=== PATIENT | male | born 1960 | race Hispanic/Latino ===

== ENCOUNTER 2018-05-06 18:59 | Emergency (ER) | payer MEDICARE, MEDICAID ==
[~2018-05-06] VITALS: Ht 175.3 cm; Wt 79.0 kg
[~2018-05-06 18:59] MED LIST: ABILIFY10 MG PO; ASPIRIN EC81 MG PO; BACTRIM DS1 TAB PO; CIPROFLOXACN500 MG PO; DIVALPROEX500 MG PO; ENALAPRIL10 MG PO; FLEXERIL5 MG PO; GABAPENTIN300 MG PO; GLYBURIDE2.5 M1 PO; LEXAPRO10 MG PO; LORTAB 1010 MG PO; LORTAB 7.57.5 MG PO; METFORMIN500 MG PO; METRONIDAZOL500 MG PO; NAPROXEN250 MG PO; NEURONTIN300 MG PO; NYSTATIN100000 M4 TOP; PERCOCET1 TA4 PO; PRILOSEC40 MG PO; TRAMADOL HCL50 MG PO; XANAX1 MG PO
[2018-05-06 20:41] LABS: HEMOGLOBIN 14.1 g/dl (14.0-18.0); IMMATURE GRANULOCYTES 0.2 % (0.0-5.0); MEAN CELL VOLUME 88.8 fL CALC (80.0-100.0); MEAN CORPUSCULAR HGB 29.8 pG CALC (26.0-32.0); MEAN CORPUSCULAR HGB CONC 33.6 g/L CALC (32.0-36.0); NEUT# 4.34 thou/uL (1.82-7.42); RED BLOOD COUNT 4.73 mill/uL (4.70-6.10); RED CELL DISTRI WIDTH 13.9 % (11.5-15.5)
[2018-05-06 21:34] LABS: URINE BILIRUBIN - DIPSTICK NEGATIVE (NEGATIVE); URINE BLOOD DIPSTICK NEGATIVE (NEGATIVE); URINE CLARITY CLEAR; URINE COLOR YELLOW; URINE GLUCOSE - DIPSTICK >=1000 mg/dL (NEGATIVE); URINE KETONE TRACE mg/dL (NEGATIVE); URINE LEUK ESTERASE NEGATIVE (NEGATIVE); URINE NITRITE - DIPSTICK NEGATIVE (Negative); URINE PH 5.5 (4.5-8.0); URINE PROTEIN - DIPSTICK TRACE mg/dL (NEG-TRACE); URINE SPECIFIC GRAVITY 1.025; URINE UROBILINOGEN - DIPSTICK 0.2 E.U./dL (0.2)
[2018-05-06 22:13] LABS: ALBUMIN 3.8 g/dL (3.2-5.0); ALKALINE PHOSPHATASE 92 u/l (38-126); ANION GAP 13 (6-22 (CALC)); BILIRUBIN, TOTAL 0.2 mg/dL (0.0-1.4); BUN 18 mg/dL (9-20); BUN/CREATININE RATIO 18 (12-20 (CALC)); CARBON DIOXIDE 25 mmol/l (22-30); CHLORIDE 105 mmol/l (95-108); GFR > 60 ML/MIN (>=60 (CALC)); GFR FOR AFR.AMER. > 60 ML/MIN (>=60 (CALC)); POTASSIUM 4.1 mmol/l (3.5-5.1); SGOT/AST 14 u/l (17-59); SODIUM 138 mmol/l (137-146); TOTAL PROTEIN 6.8 g/dL (6.3-8.2)
[2018-05-06 22:25] LABS: MYOGLOBIN 57 ng/mL (0 - 121)
[2018-05-06 23:25] VITALS: BP 128/78
== END 2018-05-06 23:25 | disposition home or self-care (01) ==
LOC: ED 18:59
PROVIDERS: Family Medicine
DX: R53.1 Weakness (principal); R11.0 Nausea; I10 Essential (primary) hypertension; R42 Dizziness and giddiness; H53.8 Other visual disturbances; E11.9 Type 2 diabetes mellitus without complications; Z79.84 Long term (current) use of oral hypoglycemic drugs

== ENCOUNTER 2018-07-16 10:01 | Emergency (ER) | payer MEDICARE, MEDICAID ==
[~2018-07-16] VITALS: Ht 175.3 cm; Wt 80.9 kg
[2018-07-16 10:43] VITALS: BP 116/76
== END 2018-07-16 10:48 | disposition home or self-care (01) ==
LOC: ED 10:01
DX: B37.0 Candidal stomatitis (principal); I10 Essential (primary) hypertension; E11.69 Type 2 diabetes mellitus with other specified complication; F25.9 Schizoaffective disorder, unspecified; F17.210 Nicotine dependence, cigarettes, uncomplicated

== ENCOUNTER 2018-08-18 16:53 | Emergency (ER) | payer MEDICARE, MEDICAID ==
[~2018-08-18] VITALS: Ht 175.3 cm; Wt 80.0 kg
[~2018-08-18 16:53] MED LIST changes: +ASPIRIN 8181 MG PO; -ASPIRIN EC81 MG PO; -GABAPENTIN300 MG PO; +PRILOSEC20 MG PO; -PRILOSEC40 MG PO
[2018-08-18] MEDS ORDERED: DOXEPIN HCL25 MG PO (17:21)
[2018-08-18] MEDS ORDERED: TAMSULOSIN HCL0.4 MG PO (17:21)
[2018-08-18] MEDS ORDERED: VICTOZA18 MG/3 ML SC (17:22)
[2018-08-18] MEDS ORDERED: LATANOPROST0.005 % OU (17:23)
[2018-08-18] MEDS ORDERED: VISTARIL 50MG C50 MG PO (17:24)
[2018-08-18] MEDS ORDERED: LOPID600 MG PO (17:24)
[2018-08-18] MEDS ORDERED: ARIPIPRAZOLE15 MG PO (17:25)
[2018-08-18] MEDS ORDERED: SERTRALINE HCL50 MG PO (17:25)
[2018-08-18] MEDS ORDERED: VESICARE10 MG PO (17:25)
[2018-08-18] MEDS ORDERED: ENALAPRIL MALEA10 MG PO (17:26)
[2018-08-18] MEDS ORDERED: ABILIFY MAINTE300 MG IJ (17:29)
[2018-08-18 18:10] VITALS: BP 125/87
== END 2018-08-18 18:10 | disposition left against medical advice (07) ==
LOC: ED 16:53
DX: S69.91XA Unspecified injury of right wrist, hand and finger(s), initial encounter (principal); M79.641 Pain in right hand; I10 Essential (primary) hypertension; E11.9 Type 2 diabetes mellitus without complications; E78.00 Pure hypercholesterolemia, unspecified; F25.9 Schizoaffective disorder, unspecified; M17.0 Bilateral primary osteoarthritis of knee; F17.210 Nicotine dependence, cigarettes, uncomplicated; X50.0XXA Overexertion from strenuous movement or load, initial encounter; Y93.89 Activity, other specified; Y92.009 Unspecified place in unspecified non-institutional (private) residence as the place of occurrence of the external cause; Z91.19 Patient's noncompliance with other medical treatment and regimen

== ENCOUNTER 2018-12-26 13:56 | Emergency (ER) | payer MEDICARE, MEDICAID ==
[~2018-12-26] VITALS: Ht 175.3 cm; Wt 80.0 kg
[~2018-12-26 13:56] MED LIST changes: +ABILIFY MAINTE300 MG IJ; +ARIPIPRAZOLE15 MG PO; +DOXEPIN HCL25 MG PO; +ENALAPRIL MALEA10 MG PO; +LATANOPROST0.005 % OU; +LOPID600 MG PO; +SERTRALINE HCL50 MG PO; +TAMSULOSIN HCL0.4 MG PO; +VESICARE10 MG PO; +VICTOZA18 MG/3 ML SC; +VISTARIL 50MG C50 MG PO
[2018-12-26 14:32] LABS: HEMATOCRIT 47.7 % (39.0-50.0); HEMOGLOBIN 15.6 g/dl (14.0-18.0); IMMATURE GRANULOCYTES 0.3 % (0.0-5.0); MEAN CORPUSCULAR HGB 29.4 pG CALC (26.0-32.0); MEAN CORPUSCULAR HGB CONC 32.7 g/L CALC (32.0-36.0); NEUT# 4.31 thou/uL (1.82-7.42); RED BLOOD COUNT 5.3 mill/uL (4.70-6.10); RED CELL DISTRI WIDTH 13.4 % (11.5-15.5)
[2018-12-26 14:43] LABS: ALKALINE PHOSPHATASE 111 u/l (38-126); ANION GAP 16 (6-22 (CALC)); BUN 14 mg/dL (9-20); BUN/CREATININE RATIO 15 (12-20 (CALC)); CARBON DIOXIDE 25 mmol/l (22-30); CHLORIDE 100 mmol/l (95-108); GFR > 60 ML/MIN (>=60 (CALC)); GFR FOR AFR.AMER. > 60 ML/MIN (>=60 (CALC)); POTASSIUM 4.3 mmol/l (3.5-5.1); SGOT/AST 14 u/l (17-59); SODIUM 136 mmol/l (137-146)
[2018-12-26 14:54] LABS: MYOGLOBIN 48 ng/mL (0 - 121)
[2018-12-26 14:56] LABS: ALBUMIN 4.8 g/dL (3.2-5.0); BILIRUBIN, TOTAL 0.5 mg/dL (0.0-1.4); TOTAL PROTEIN 8.3 g/dL (6.3-8.2)
[2018-12-26 15:51] LABS: URINE BILIRUBIN - DIPSTICK NEGATIVE (NEGATIVE); URINE BLOOD DIPSTICK NEGATIVE (NEGATIVE); URINE COLOR YELLOW; URINE GLUCOSE - DIPSTICK NEGATIVE (NEGATIVE); URINE KETONE NEGATIVE (NEGATIVE); URINE LEUK ESTERASE NEGATIVE (NEGATIVE); URINE NITRITE - DIPSTICK NEGATIVE (Negative); URINE PROTEIN - DIPSTICK NEGATIVE (NEG-TRACE); URINE UROBILINOGEN - DIPSTICK 0.2 E.U./dL (0.2)
[2018-12-26] MEDS ORDERED: LORTAB 1010 MG PO (16:27)
[2018-12-26 16:57] VITALS: BP 109/70
== END 2018-12-26 17:15 | disposition home or self-care (01) ==
LOC: ED 13:56
PROVIDERS: Emergency Medicine
DX: M25.561 Pain in right knee (principal); R53.1 Weakness; I10 Essential (primary) hypertension; E11.9 Type 2 diabetes mellitus without complications

== ENCOUNTER 2019-04-07 11:03 | Emergency (ER) | payer MEDICARE, MEDICAID ==
[~2019-04-07] VITALS: Ht 175.3 cm; Wt 86.0 kg
[~2019-04-07 11:03] MED LIST changes: +OMEPRAZOLE DR40 MG PO; -PRILOSEC20 MG PO
[2019-04-07] MEDS ORDERED: VALPROIC ACD250 M1 PO (11:27)
[2019-04-07] MEDS ORDERED: GABAPENTIN600 MG PO (11:28)
[2019-04-07] MEDS ORDERED: SERTRALINE HCL100 MG PO (11:29)
[2019-04-07] MEDS ORDERED: DOXAZOSIN MESYLA4 M1 PO (11:29)
[2019-04-07] MEDS ORDERED: ARIPIPRAZOLE20 MG PO (11:30)
[2019-04-07] MEDS ORDERED: GLIPIZIDE10 M2 PO (11:31)
[2019-04-07] MEDS ORDERED: METFORMIN HCL1000 MG PO (11:31)
[2019-04-07] MEDS ORDERED: LOSARTAN POTASS25 MG PO (11:32)
[2019-04-07] MEDS ORDERED: LORTAB 1010 MG PO (11:59)
[2019-04-07 12:05] VITALS: BP 116/74
== END 2019-04-07 12:05 | disposition home or self-care (01) ==
LOC: ED 11:03
DX: M17.11 Unilateral primary osteoarthritis, right knee (principal); I10 Essential (primary) hypertension; E11.9 Type 2 diabetes mellitus without complications; F17.210 Nicotine dependence, cigarettes, uncomplicated; Z96.651 Presence of right artificial knee joint; Z79.84 Long term (current) use of oral hypoglycemic drugs

== ENCOUNTER 2019-05-16 06:22 | Emergency (ER) | payer MEDICARE, MEDICAID ==
[~2019-05-16] VITALS: Ht 175.3 cm; Wt 79.4 kg
[~2019-05-16 06:22] MED LIST changes: +ARIPIPRAZOLE20 MG PO; +DOXAZOSIN MESYLA4 M1 PO; +GABAPENTIN600 MG PO; +GLIPIZIDE10 M2 PO; +LOSARTAN POTASS25 MG PO; +METFORMIN HCL1000 MG PO; +SERTRALINE HCL100 MG PO; +VALPROIC ACD250 M1 PO
[2019-05-16 07:02] LABS: HEMATOCRIT 42.6 % (39.0-50.0); HEMOGLOBIN 14.5 g/dl (14.0-18.0); IMMATURE GRANULOCYTES 0.4 % (0.0-5.0); MEAN CELL VOLUME 89.9 fL CALC (80.0-100.0); MEAN CORPUSCULAR HGB 30.6 pG CALC (26.0-32.0); NEUT# 4.87 thou/uL (1.82-7.42); RED BLOOD COUNT 4.74 mill/uL (4.70-6.10); RED CELL DISTRI WIDTH 13.5 % (11.5-15.5)
[2019-05-16 07:05] LABS: URINE BILIRUBIN - DIPSTICK NEGATIVE (NEGATIVE); URINE BLOOD DIPSTICK NEGATIVE (NEGATIVE); URINE COLOR YELLOW; URINE GLUCOSE - DIPSTICK >=1000 mg/dL (NEGATIVE); URINE KETONE NEGATIVE (NEGATIVE); URINE LEUK ESTERASE NEGATIVE (NEGATIVE); URINE NITRITE - DIPSTICK NEGATIVE (Negative); URINE PROTEIN - DIPSTICK NEGATIVE (NEG-TRACE); URINE SPECIFIC GRAVITY <=1.005; URINE UROBILINOGEN - DIPSTICK 0.2 E.U./dL (0.2)
[2019-05-16 07:14] LABS: ALBUMIN 4.2 g/dL (3.2-5.0); ALKALINE PHOSPHATASE 99 u/l (38-126); AMYLASE 68 u/l (30-110); ANION GAP 12 (6-22 (CALC)); BILIRUBIN, TOTAL 0.4 mg/dL (0.0-1.4); BUN 12 mg/dL (9-20); BUN/CREATININE RATIO 14 (12-20 (CALC)); CARBON DIOXIDE 29 mmol/l (22-30); CHLORIDE 98 mmol/l (95-108); CREATININE 0.9 mg/dL (0.7-1.3); GFR > 60 ML/MIN (>=60 (CALC)); GFR FOR AFR.AMER. > 60 ML/MIN (>=60 (CALC)); LIPASE 245 u/l (23-300); POTASSIUM 4.4 mmol/l (3.5-5.1); SGOT/AST 14 u/l (17-59); SODIUM 134 mmol/l (137-146); TOTAL PROTEIN 7.6 g/dL (6.3-8.2)
[2019-05-16] MEDS ORDERED: BACTRIM DS1 TAB PO (10:44)
[2019-05-16] MEDS ORDERED: LORTAB 1010 MG PO (10:45)
[2019-05-16 11:13] VITALS: BP 140/79
== END 2019-05-16 11:13 | disposition home or self-care (01) ==
LOC: ED 06:22
PROVIDERS: Emergency Medicine
DX: N45.1 Epididymitis (principal); I10 Essential (primary) hypertension; E11.42 Type 2 diabetes mellitus with diabetic polyneuropathy; F17.200 Nicotine dependence, unspecified, uncomplicated; Z79.84 Long term (current) use of oral hypoglycemic drugs
CPT/HCPCS: Q9967

== ENCOUNTER 2019-10-04 03:56 | Observation (INO) | payer MEDICARE, MEDICAID ==
[~2019-10-04] VITALS: Ht 175.3 cm; Wt 76.0 kg
[2019-10-04 04:27] LABS: IMMATURE GRANULOCYTES 0.1 % (0.0-5.0); MEAN CELL VOLUME 88.4 fL CALC (80.0-100.0); MEAN CORPUSCULAR HGB 27.4 pG CALC (26.0-32.0); MEAN CORPUSCULAR HGB CONC 31.1 g/dL CAL (32.0-36.0); NEUT# 5.4 thou/uL (1.82-7.42); RED BLOOD COUNT 4.3 mill/uL (4.70-6.10); RED CELL DISTRI WIDTH 14.8 % (11.5-15.5)
[2019-10-04 04:29] LABS: HEMOGLOBIN 11.8 g/dl (14.0-18.0)
[2019-10-04 04:39] LABS: ALBUMIN 3.8 g/dL (3.2-5.0); ALKALINE PHOSPHATASE 96 u/l (38-126); AMYLASE 59 u/l (30-110); ANION GAP 12 (6-22 (CALC)); BUN 11 mg/dL (9-20); BUN/CREATININE RATIO 14 (12-20 (CALC)); CARBON DIOXIDE 27 mmol/l (22-30); CHLORIDE 101 mmol/l (95-108); CREATININE 0.8 mg/dL (0.7-1.3); ETHYL ALCOHOL 0 mg/dl (0-30); GFR > 60 ML/MIN (>=60 (CALC)); GFR FOR AFR.AMER. > 60 ML/MIN (>=60 (CALC)); LIPASE 132 u/l (23-300); MAGNESIUM 1.6 mg/dL (1.6-2.3); SGOT/AST 12 u/l (17-59); SODIUM 137 mmol/l (137-146); TOTAL PROTEIN 7.2 g/dL (6.3-8.2)
[2019-10-04 04:40] LABS: ACT PARTIAL THROMBO TIME 34.5 SECONDS (20.0-32.5); INTERNATIONAL NORMALIZED RATIO 0.9 RATIO (0.7-1.3); PROTHROMBIN TIME 9.7 SECONDS (9.0-12.5)
[2019-10-04 04:44] LABS: BILIRUBIN, TOTAL 0.2 mg/dL (0.0-1.4)
[2019-10-04 05:50] LABS: URINE BILIRUBIN - DIPSTICK NEGATIVE (NEGATIVE); URINE BLOOD DIPSTICK NEGATIVE (NEGATIVE); URINE COLOR YELLOW; URINE GLUCOSE - DIPSTICK NEGATIVE (NEGATIVE); URINE KETONE NEGATIVE (NEGATIVE); URINE LEUK ESTERASE NEGATIVE (NEGATIVE); URINE NITRITE - DIPSTICK NEGATIVE (Negative); URINE PROTEIN - DIPSTICK NEGATIVE (NEG-TRACE); URINE UROBILINOGEN - DIPSTICK 0.2 E.U./dL (0.2)
[2019-10-04 06:01] LABS: BARBITURATES NEGATIVE (NEGATIVE); COCAINE NEGATIVE (NEGATIVE); METHADONE NEGATIVE (NEGATIVE); OXCYCODONE NEGATIVE (NEGATIVE); TETRAHYDROCANNABIONOL NEGATIVE (NEGATIVE); TRICYLIC ANTIDEPRESSANTS NEGATIVE (NEGATIVE)
[2019-10-04 07:05] VITALS: BP 119/78
[2019-10-04 07:42] VITALS: BP 139/78
[2019-10-04 08:04] VITALS: BP 119/69
[2019-10-04 11:46] VITALS: BP 118/73
== END 2019-10-04 12:52 | disposition home or self-care (01) ==
LOC: ED 03:56 → ED-I 05:40 → ED 05:54 → ED-I 05:55 → MS2 06:04
PROVIDERS: ADMIT Internal Medicine; ATTEND Internal Medicine
DX: R07.9 Chest pain, unspecified (principal); I10 Essential (primary) hypertension; E11.42 Type 2 diabetes mellitus with diabetic polyneuropathy; G89.4 Chronic pain syndrome; F25.9 Schizoaffective disorder, unspecified; E78.5 Hyperlipidemia, unspecified; F17.210 Nicotine dependence, cigarettes, uncomplicated; Z79.84 Long term (current) use of oral hypoglycemic drugs; M25.561 Pain in right knee; Z47.1 Aftercare following joint replacement surgery; Z96.651 Presence of right artificial knee joint
CPT/HCPCS: G0378

== ENCOUNTER 2019-10-31 13:59 | Emergency (ER) | payer MEDICARE, MEDICAID ==
[2019-10-31 14:37] VITALS: BP 133/71
== END 2019-10-31 14:23 | disposition home or self-care (01) ==
LOC: ED 13:59
DX: G89.29 Other chronic pain (principal); M25.561 Pain in right knee; I10 Essential (primary) hypertension; F17.200 Nicotine dependence, unspecified, uncomplicated; E11.42 Type 2 diabetes mellitus with diabetic polyneuropathy

== ENCOUNTER 2019-12-25 09:24 | Emergency (ER) | payer MEDICARE, MEDICAID ==
[~2019-12-25] VITALS: Ht 175.3 cm; Wt 74.5 kg
[2019-12-25 09:51] VITALS: BP 124/75
== END 2019-12-25 09:58 | disposition home or self-care (01) ==
LOC: ED 09:24
DX: M25.561 Pain in right knee (principal); M79.604 Pain in right leg; M79.89 Other specified soft tissue disorders; M17.0 Bilateral primary osteoarthritis of knee; I10 Essential (primary) hypertension; E11.42 Type 2 diabetes mellitus with diabetic polyneuropathy

== ENCOUNTER 2020-05-08 01:54 | Emergency (ER) | payer MEDICARE, MEDICAID ==
[~2020-05-08] VITALS: Ht 175.3 cm; Wt 72.7 kg
[2020-05-08] MEDS ORDERED: OXYCODONE15 MG PO (02:06)
[2020-05-08 02:25] VITALS: BP 128/63
== END 2020-05-08 02:35 | disposition home or self-care (01) ==
LOC: ED 01:54
DX: M54.5 Low back pain (principal); I10 Essential (primary) hypertension; E11.42 Type 2 diabetes mellitus with diabetic polyneuropathy; F17.200 Nicotine dependence, unspecified, uncomplicated

== ENCOUNTER 2020-11-19 12:56 | Emergency (ER) | payer MEDICARE, MEDICAID ==
[~2020-11-19 12:56] MED LIST changes: +OXYCODONE15 MG PO
[2020-11-19] MEDS ORDERED: ALPRAZOLAM0.5 MG PO (13:16)
[2020-11-19] MEDS ORDERED: GABAPENTIN300 M2 PO (13:18)
[2020-11-19] MEDS ORDERED: SOLIFENACIN SUCC5 MG PO (13:19)
[2020-11-19] MEDS ORDERED: SERTRALINE100 MG PO (13:19)
[2020-11-19] MEDS ORDERED: TAMSULOSIN HCL0.4 MG PO (13:20)
[2020-11-19] MEDS ORDERED: OXTELLAR XR150 MG PO (13:21)
[2020-11-19] MEDS ORDERED: MONTELUKAST SOD10 MG PO (13:22)
[2020-11-19] MEDS ORDERED: OMEPRAZOLE DR40 MG (13:22)
[2020-11-19] MEDS ORDERED: LOPID600 MG PO (13:23)
[2020-11-19] MEDS ORDERED: DIVALPROEX SOD250 MG PO (13:24)
[2020-11-19] MEDS ORDERED: ASPIRIN325 MG PO (13:25)
[2020-11-19] MEDS ORDERED: ABILIFY MYCITE PO (13:25)
[2020-11-19] MEDS ORDERED: JANUVIA100 MG PO (13:26)
[2020-11-19] MEDS ORDERED: DOXEPIN HCL75 MG PO (13:26)
[2020-11-19 14:13] VITALS: BP 125/80
== END 2020-11-19 14:20 | disposition home or self-care (01) ==
LOC: ED 12:56
DX: M54.5 Low back pain (principal); I10 Essential (primary) hypertension; E11.42 Type 2 diabetes mellitus with diabetic polyneuropathy; E78.5 Hyperlipidemia, unspecified; F17.200 Nicotine dependence, unspecified, uncomplicated; W11.XXXA Fall on and from ladder, initial encounter; Y93.89 Activity, other specified; Y92.009 Unspecified place in unspecified non-institutional (private) residence as the place of occurrence of the external cause; Z87.442 Personal history of urinary calculi

== ENCOUNTER 2021-01-25 06:23 | Emergency (ER) | payer MEDICARE, MEDICAID ==
[~2021-01-25] VITALS: Ht 175.3 cm; Wt 72.0 kg
[~2021-01-25 06:23] MED LIST changes: +ABILIFY MYCITE PO; +ALPRAZOLAM0.5 MG PO; +ASPIRIN325 MG PO; +DIVALPROEX SOD250 MG PO; +DOXEPIN HCL75 MG PO; +GABAPENTIN300 M2 PO; +JANUVIA100 MG PO; +MONTELUKAST SOD10 MG PO; +OMEPRAZOLE DR40 MG; +OXTELLAR XR150 MG PO; +SERTRALINE100 MG PO; +SOLIFENACIN SUCC5 MG PO
[2021-01-25] MEDS ORDERED: BACTRIM DS1 TAB PO (09:35)
[2021-01-25 09:40] VITALS: BP 122/89
== END 2021-01-25 09:50 | disposition home or self-care (01) ==
LOC: ED 06:23
DX: M23.8X1 Other internal derangements of right knee (principal); I10 Essential (primary) hypertension; E78.00 Pure hypercholesterolemia, unspecified; E11.42 Type 2 diabetes mellitus with diabetic polyneuropathy; F17.200 Nicotine dependence, unspecified, uncomplicated; Z96.651 Presence of right artificial knee joint
CPT/HCPCS: L1830

== ENCOUNTER 2021-08-28 11:18 | Emergency (ER) | payer MEDICARE, MEDICAID ==
[~2021-08-28] VITALS: Ht 175.3 cm; Wt 72.0 kg
[2021-08-28] MEDS ORDERED: CYCLOBENZAPRINE10 MG PO (13:16)
[2021-08-28] MEDS ORDERED: LORTAB 1010 MG PO (13:16)
[2021-08-28 13:28] VITALS: BP 135/82
== END 2021-08-28 13:40 | disposition home or self-care (01) ==
LOC: ED 11:18
DX: M47.816 Spondylosis without myelopathy or radiculopathy, lumbar region (principal); I10 Essential (primary) hypertension; E11.42 Type 2 diabetes mellitus with diabetic polyneuropathy; E78.00 Pure hypercholesterolemia, unspecified; F17.210 Nicotine dependence, cigarettes, uncomplicated

== ENCOUNTER 2021-09-19 16:59 | Emergency (ER) | payer MEDICARE, MEDICAID ==
[2021-09-19] VITALS (9 sets, daily range): BP systolic 102–128; BP diastolic 58–79
[~2021-09-19] VITALS: Ht 175.3 cm; Wt 78.0 kg
[~2021-09-19 16:59] MED LIST changes: +CYCLOBENZAPRINE10 MG PO
[2021-09-19 17:46] LABS: GFR > 60 ML/MIN (>=60 (CALC)); GFR FOR AFR.AMER. > 60 ML/MIN (>=60 (CALC))
[2021-09-19 17:56] LABS: HEMATOCRIT 41.9 % (39.0-50.0); HEMOGLOBIN 13.8 g/dl (14.0-18.0); IMMATURE GRANULOCYTES 0.1 % (0.0-5.0); MEAN CELL VOLUME 91.5 fL CALC (80.0-100.0); MEAN CORPUSCULAR HGB 30.1 pG CALC (26.0-32.0); MEAN CORPUSCULAR HGB CONC 32.9 g/dL CAL (32.0-36.0); NEUT# 4.21 thou/uL (1.82-7.42); RED BLOOD COUNT 4.58 mill/uL (4.70-6.10); RED CELL DISTRI WIDTH 14.3 % (11.5-15.5)
[2021-09-19 18:10] LABS: ALBUMIN 4.1 g/dL (3.2-5.0); ALKALINE PHOSPHATASE 113 u/l (38-126); ANION GAP 12 (6-22 (CALC)); BUN 18 mg/dL (8-23); BUN/CREATININE RATIO 17 (12-20 (CALC)); CARBON DIOXIDE 28 mmol/l (22-30); CHLORIDE 101 mmol/l (95-108); CREATININE 1.1 mg/dL (0.7-1.3); GFR > 60 ML/MIN (>=60 (CALC)); GFR FOR AFR.AMER. > 60 ML/MIN (>=60 (CALC)); LIPASE 191 u/l (23-300); POTASSIUM 4.1 mmol/l (3.5-5.1); SGOT/AST 21 u/l (19-48); SODIUM 137 mmol/l (137-146); TOTAL PROTEIN 7.6 g/dL (6.3-8.2)
[2021-09-19 18:11] LABS: BILIRUBIN, TOTAL 0.2 mg/dL (0.0-1.4)
[2021-09-19] MEDS ORDERED: XTAMPZA ER18 MG PO (19:05)
[2021-09-19 20:08] LABS: URINE BILIRUBIN - DIPSTICK NEGATIVE (NEGATIVE); URINE BLOOD DIPSTICK TRACE-INTACT (NEGATIVE); URINE COLOR YELLOW; URINE GLUCOSE - DIPSTICK NEGATIVE (NEGATIVE); URINE KETONE NEGATIVE (NEGATIVE); URINE LEUK ESTERASE NEGATIVE (NEGATIVE); URINE PROTEIN - DIPSTICK NEGATIVE (NEG-TRACE); URINE UROBILINOGEN - DIPSTICK 0.2 E.U./dL (0.2)
[2021-09-19 20:09] LABS: URINE NITRITE - DIPSTICK NEGATIVE (Negative)
[2021-09-19] MEDS ORDERED: MIRALAX17 GM PO (20:23)
[2021-09-19] MEDS ORDERED: CITRATE OF MEGNESIA PO (20:23)
== END 2021-09-19 20:49 | disposition home or self-care (01) ==
LOC: ED 16:59
PROVIDERS: Family Medicine
DX: K59.00 Constipation, unspecified (principal); I10 Essential (primary) hypertension; E11.42 Type 2 diabetes mellitus with diabetic polyneuropathy; E78.00 Pure hypercholesterolemia, unspecified; Z87.442 Personal history of urinary calculi; F17.210 Nicotine dependence, cigarettes, uncomplicated
CPT/HCPCS: Q9967

== ENCOUNTER 2023-04-21 14:16 | Emergency (ER) | payer MEDICARE, MEDICAID ==
[~2023-04-21] VITALS: Ht 175.3 cm; Wt 65.0 kg
[~2023-04-21 14:16] MED LIST changes: +CITRATE OF MEGNESIA PO; +MIRALAX17 GM PO; +XTAMPZA ER18 MG PO
[2023-04-21 15:23] VITALS: BP 147/72
== END 2023-04-21 15:24 | disposition left against medical advice (07) ==
LOC: ED 14:16
DX: G89.29 Other chronic pain (principal); M54.50 Low back pain, unspecified; M25.561 Pain in right knee; I10 Essential (primary) hypertension; E11.42 Type 2 diabetes mellitus with diabetic polyneuropathy; E78.00 Pure hypercholesterolemia, unspecified; M17.0 Bilateral primary osteoarthritis of knee; F17.210 Nicotine dependence, cigarettes, uncomplicated; Z53.29 Procedure and treatment not carried out because of patient's decision for other reasons